=== PATIENT | female | born 2005 | race Caucasian/White ===

== ENCOUNTER 2024-02-24 11:02 | Inpatient (IN) | payer OTHER ==
[2024-02-24] MEDS: LACTATED RINGERS 1,000 ML IV SCH (13:05)
[2024-02-24] MEDS ORDERED: TERBUTALINE 1 MG/ML VIAL SQ PRN (13:10)
[2024-02-24] MEDS ORDERED: CARBOPROST TROMETHAMINE 250 MCG/ML 1 ML AMP IM PRN (13:10)
[2024-02-24] MEDS ORDERED: miSOPROStoL 200 MCG TAB PO PRN (13:10)
[2024-02-24] MEDS ORDERED: miSOPROStoL 200 MCG TAB RECTAL PRN (13:10)
[2024-02-24] MEDS ORDERED: TRANEXAMIC 1,000 MG/100ML-NACL 1,000 MG in EMPTY BAG 1 BAG IV PRN (13:10)
[2024-02-24] MEDS ORDERED: OXYTOCIN 10 UNIT/ML 1 ML VIAL IM PRN (13:10)
[2024-02-24] MEDS ORDERED: METHYLERGONOVINE 0.2 MG/ML 1 ML AMP IM PRN (13:10)
[2024-02-24 14:05] LABS: Basophils % (A) 0 %; Eosinophils # (A) 0.1 k/uL (0-0.7); Eosinophils % (A) 0 %; HCT 37.4 % (34.0-46.0); HGB 13.1 gm/dL (11.4-16.0); Lymphocytes # (A) 1.3 k/uL (1.0-4.8); Lymphocytes % (A) 10 %; MCH 32.7 pg (25.0-35.0); MCV 93.4 fL (80.0-100.0); Mean Platelet Volume 11.1; Monocytes # (A) 0.5 k/uL (0-1.0); Monocytes % (A) 4 %; Neutrophils # (A) 11.5 k/uL (1.3-7.7); Neutrophils % (A) 85 %; Platelet Count 187 k/uL (150-450); RBC 4.01 m/uL (3.80-5.40); RDW 14.4 % (11.5-15.5); WBC 13.4 k/uL (4.0-11.0)
[2024-02-24] MEDS: OXYTOCIN 30 UNITS/500 ML NS 30 UNIT in SALINE 1 500ML.BAG IV SCH (15:14)
[2024-02-24] MEDS: LIDOCAINE 0.5% (PF) 5 MG/ML (50 ML SDV) SQ PRN (15:15)
[2024-02-24] MEDS: BENZOCAINE/MENTHOL SPRAY 1 GM/SPRAY AEROSOL TOPICAL PRN (15:20)
[2024-02-24] MEDS ORDERED: diphenhydrAMINE 50 MG CAP PO PRN (15:28)
[2024-02-24] MEDS ORDERED: diphenhydrAMINE 50 MG/ML 1 ML VIAL IVP PRN ×2 (15:28)
[2024-02-24] MEDS ORDERED: SIMETHICONE 80 MG CHEWABLE PO PRN (15:28)
[2024-02-24] MEDS ORDERED: diphenhydrAMINE 25 MG CAP PO PRN (15:28)
[2024-02-24] MEDS ORDERED: LANOLIN CREAM 1 GM TUBE TOPICAL PRN (15:28)
[2024-02-24] MEDS ORDERED: ZOLPIDEM 5 MG TAB PO PRN (15:28)
[2024-02-24] MEDS ORDERED: HYDROCORTISONE 2.5% RECTAL CREAM 30 GM TUBE RECTAL PRN (15:28)
--- NOTE | 2024-02-24 15:32 | P.HPOB ---
History of Present Illness H&P Date: 02/24/24 Chief Complaint: IUP at 40 1 sevenths weeks, active labor This is a 18-year-old 1 para 0 at 40 and 1 sevenths weeks that presents to labor and delivery and active labor. Patient is breathing through contractions. Patient has been receiving routine care which has been essentially uncomplicated although she showed up late for care. On blood work this patient is a blood type of B+, rubella status nonimmune, hepatitis B surface engine negative, HIV negative, RPR is nonreactive, group B strep culture is negative. Review of Systems Constitutional: Denies chills, Denies fatigue, Denies fever Ears, nose, mouth and throat: Denies headache Cardiovascular: Denies leg edema Respiratory: Denies dyspnea Gastrointestinal: Denies constipation, Denies diarrhea, Denies nausea, Denies vomiting Genitourinary: Reports Past Medical History History of Any Multi-Drug Resistant Organisms: None Reported Smoking Status: Never smoker Medications and Allergies Home Medications Medication Instructions Recorded Confirmed Type No Known Home Medications 02/24/24 02/24/24 History Allergies Allergy/AdvReac Type Severity Reaction Status Date / Time No Known Allergies Allergy Verified 02/24/24 11:26 Exam Osteopathic Statement: *. No significant issues noted on an osteopathic structu ral exam other than those noted in the History and Physical/Consult. Intake and Output 02/24/24 02/24/24 02/24/24 06:59 14:59 22:59 Other: Weight 68.039 kg Targeted physical exam is performed on this date General Is well-nourished well- developed female in no acute distress, breathing is noted to be nonlabored, heart has a regular rate and rhythm, abdomen is gravid and appropriate for gestational age, on cervical exam she is 6+ centimeters 100% effaced -2 station amniotomy is performed and thin meconium stained fluid is appreciated, heart tones noted to be category 1 and she is rhoda every 2 to 3 minutes. Results Result Diagrams: 02/24/24 13:10 Abnormal Lab Results - Last 24 Hours (Table) 02/24/24 Range/Units 13:10 WBC 13.4 H (4.0-11.0) k/uL Neutrophils # 11.5 H (1.3-7.7) k/uL Assessment and Plan (1) Post-dates Current Visit: Yes Status: Acute Code(s): O48.0 - POST-TERM SNOMED Code(s): 14208829 (2) Active labor Current Visit: Yes Status: Acute Code(s): MPG4489 - SNOMED Code(s): 832625921 Plan: 18-year-old female 1 para 0 at 41/7 weeks that presents in active labor. Patient is admitted to labor and delivery. Patient is requesting nitrous for pain control, declines epidural. Anticipate spontaneous vaginal delivery.
--- NOTE | 2024-02-24 15:34 | P.PROBDLV ---
Vaginal Delivery Note - . Vaginal Delivery Note: 18-year-old 1 para 0 at 40 and 1 sevenths weeks that presented in active labor. Patient was admitted and amniotomy was performed thin meconium stained fluid was appreciated. Patient made good progress toward complete dilation. Once completely dilated patient began pushing. Upon heart tones were noted to be in the 80s and secondary to maternal discomfort and inability to push a vacuum was applied. Placement was confirmed as the baby was , with 1 pull viable female infant was delivered at 519, weight of 7 pounds 6 ounces, Apgars of 9 and 9 at 1 and 5 minutes respectively. After 2-minute delay the umbilical cord was doubly clamped and cut, placenta was delivered spontaneously intact with a three-vessel cord. Upon inspection of the vaginal vault a right lateral hymenal laceration was appreciated. This was injected with lidocaine and repaired in usual fashion with 3-0 Rapide. Uterus was noted to be firm and below the umbilicus. Estimated blood loss 100 cc. Patient and tolerated delivery well and are resting comfortably All counts were noted be correct x 2 at the end of the delivery.
[2024-02-24 16:34] VITALS: RESP 16
[2024-02-24] MEDS: IBUPROFEN 800 MG TAB PO SCH (17:45)
[2024-02-24] MEDS: ACETAMINOPHEN TAB 500 MG TAB PO SCH (17:45)
[2024-02-24] MEDS ORDERED: SENNOSIDES-DOCUSATE SODIUM 1 EACH TAB PO SCH (20:00)
--- NOTE | 2024-02-25 07:27 | P.PNOBGVD ---
Subjective - Subjective Principal diagnosis: S/P NVD PPD #1 Interval history: Pt seen and examined. Denies N/V, F/C, CP, SOB or calf pain. She is having some perineal discomfort. Patient reports: Reports appetite normal, Reports voiding normally, Reports pain well controlled, Reports ambulating normally : doing well Objective - Latest Vital Signs Latest vital signs: Vital Signs Temp Pulse Resp BP Pulse Ox 02/25/24 03:25 98.1 F 74 16 113/73 02/24/24 19:25 98.2 F 75 16 111/64 02/24/24 17:25 98.9 F 75 16 112/63 02/24/24 17:10 72 16 115/59 02/24/24 16:55 70 16 126/68 02/24/24 16:40 76 16 115/71 02/24/24 16:25 75 16 116/69 02/24/24 16:10 75 16 116/72 02/24/24 15:55 80 16 113/63 02/24/24 15:40 79 16 118/64 02/24/24 15:25 98.9 F 82 16 128/67 02/24/24 13:10 98.7 F 83 16 134/87 99 02/24/24 11:05 98.7 F 83 16 134/87 99 Intake and Output 02/24/24 02/25/24 02/25/24 22:59 06:59 14:59 Intake Total 167 Output Total 325 Balance -158 Intake: Intake, IV Titration 167 Amount Oxytocin 30 Units/500 ml 167 Ns 30 unit In Saline 1 500ml.bag @ Per Protocol IV [facility] Rx#:[id number] Output: Output, Quantitative 325 Blood Loss Other: # Voids 1 1 - Exam Lungs: bilateral: normal Chest: Normal S1, Normal S2 Extremities: Present: normal Abdomen: Present: normal appearance, soft Uterus: Present: normal, firm - Labs Labs: Abnormal Lab Results - Last 24 Hours (Table) 02/24/24 Range/Units 13:10 WBC 13.4 H (4.0-11.0) k/uL Neutrophils # 11.5 H (1.3-7.7) k/uL Assessment and Plan (1) Status post normal vaginal delivery Current Visit: Yes Status: Acute Code(s): [id number] - SNOMED Code(s): 287192204 Plan: 1. cont pp care
[2024-02-25 08:09] VITALS: TEMP 98.2
[2024-02-25 17:21] VITALS: BP 110/56; PULSE 92
== END 2024-02-25 18:35 | disposition home or self-care (01) | DRG 560 ==
LOC: FBPOP 11:02 → 4FBP 12:32
PROVIDERS: ADMIT Obstetrics & Gynecology; ATTEND Obstetrics & Gynecology
PROC: 10E0XZZ Delivery of Products of Conception, External Approach (ICD-10-PCS; principal; 2024-02-24)
PROC: 0HQ9XZZ Repair Perineum Skin, External Approach (ICD-10-PCS; 2024-02-24)
DX: O48.0 Post-term pregnancy (principal); O70.0 First degree perineal laceration during delivery; O77.0 Labor and delivery complicated by meconium in amniotic fluid; Z37.0 Single live birth; Z3A.40 40 weeks gestation of pregnancy
CPT/HCPCS: 59025; 85025; 86850; 86900; 86901; 99213